=== PATIENT | female | born 1975 | race Caucasian/White ===

== ENCOUNTER → 2024-05-27 | Outpatient (CLI) | payer OTHER ==
[2024-05-27 16:00] VITALS: BP 186/84; PULSE 98; RESP 16; TEMP 97
--- NOTE | 2024-05-27 18:24 | P.SLEEP ---
History of Present Illness H&P Date: 05/27/24 This is a 48-year-old female patient is coming in for further advice regarding her symptoms of chronic hypersomnia and sleepiness and fatigue. The patient has been having those symptoms for many years and she states that she can fall asleep at any times and she feels always tired and fatigued. For now, the patient is going to bed at around 10 PM and she is getting out of bed at 8 AM in the morning. On weekends, she sleeps between 10 to 11 PM till 10 to 11 AM in the morning. On weekends, she is taken approximately an hours of sleep. Despite all this, she feels excessively fatigued and sleepy and she wakes up tired and she has trouble with attention and memory and concentration. She can easily fall asleep and typically she is able to generate sleep within minutes. No issues with sleep induction. She is sleeping on her side and back and she is also taking several naps during the day. She drinks at least 4-5 caffeinated beverages to keep herself stimulated. Her weight is up by around 10 pounds over the past 1 year. No sleep paralysis. No hallucinations. No cataplexy. Denies fall asleep while driving. No history of any motor vehicle accidents because of feeling drowsy or sleepy. This patient has been studied through sleep center through [facility]. Her original polysomnography was done on 07/27/2020. I reviewed the sleep study and the patient had a sleep efficiency of 89.4%. Her sleep latency was 2 minutes and latency to REM sleep was 198 minutes. Her sleep architecture was characterized by 1.8% stage I, 66.7% stage II, 16.7% stage III and a total of 14.8% REM sleep. The AHI was measured to be 85 and her AHI during REM sleep was 25.4. Her AHI in the supine body position was 7.2. No significant nocturnal oxygen desaturation and the patient was able to maintain saturation above 90%. No periodic limb movement activity. Based on those results, the patient was offered for CPAP machine. She underwent a CPAP titration and she was titrated to a CPAP pressure of 8 cm of water. She was given a ResMed 11 CPAP unit. The patient used the machine for quite some time and she did not see any benefit and she ultimately quit the treatment. Over the past 1 year, the patient has not used the machine. For now, she is up in her weight by around 10 pounds. She has some limited soft snoring. Her current [place] score is at 21. No other medical pounds or comorbidities. No history of substance abuse. No history of head trauma. No reported anxiety or depr ession. No panic attacks. No PTSD. No bipolar disorder. No restlessness in lower extremities. No nighttime chest pain or shortness of breath or heartburn. No family history of for any sleep breathing disorders or any other sleep disorder. She is coming in for further advice. Review of Systems Constitutional: Reports daytime sleepiness, Reports fatigue Eyes: denies as per HPI, denies blurred vision, denies bulging eye, denies decreased vision, denies diplopia, denies discharge, denies dry eye, denies irritation, denies itching, denies pain, denies photophobia, denies loss of peripheral vision, denies loss of vision, denies tunnel vision/blind spots Ears: deny: decreased hearing, ear discharge, earache, tinnitus Ears, nose, mouth and throat: Reports as per HPI Breasts: absent: as per HPI, change in shape, gynecomastia, masses, nipple discharge, pain, skin changes, swelling Cardiovascular: Reports as per HPI Respiratory: Reports sleep apnea Gastrointestinal: Reports as per HPI Genitourinary: Reports as per HPI Menstruation: Reports as per HPI Musculoskeletal: Reports as per HPI Musculoskeletal: absent: ankle pain, ankle stiffness, ankle swelling, as per HPI, elbow pain, elbow stiffness, elbow swelling, foot pain, foot stiffness, foot swelling, hand pain, hand stiffness, hand swelling, hip pain, hip stiffness, hip swelling, knee pain, knee stiffness, knee swelling, shoulder pain, shoulder stiffness, shoulder swelling, wrist pain, wrist stiffness, wrist swelling Integumentary: Reports as per HPI Neurological: Reports as per HPI Psychiatric: Reports change in sleep habits, Reports hypersomnia, Reports sleep disturbances Endocrine: Reports as per HPI, Reports fatigue Hematologic/Lymphatic: Reports as per HPI Allergic/Immunologic: Reports as per HPI Past Medical History Past Medical History: Sleep Apnea/CPAP/BIPAP History of Any Multi-Drug Resistant Organisms: None Reported Additional Past Surgical History / Comment(s): lasik, wisdom teeth Past Anesthesia/Blood Transfusion Reactions: No Reported Reaction Past Psychological History: No Psychological Hx Reported Smoking Status: Never smoker Past Drug Use History: None Reported - Past Family History Mother Family Medical History: Congestive Heart Failure (CHF) Father Family Medical History: Cancer Additional Family Medical History / Comment(s): Brain Cancer Physical Exam Vitals: Vital Signs Temp Pulse Resp BP Pulse Ox 05/27/24 15:58 97 F L 98 16 186/84 97 Intake and Output 05/27/24 05/27/24 05/27/24 06:59 14:59 22:59 Other: Weight 78.018 kg The patient appeared well nourished and normally developed. Vital signs as documented. Head exam is unremarkable. No scleral icterus or corneal arcus noted. Neck is without jugular venous distension, thyromegaly, or carotid bruits. Carotid upstrokes are brisk bilaterally. Lungs are clear to auscultation and percussion. Cardiac exam reveals the PMI to be normally sized and situated. Rhythm is regular. First and second heart sounds normal. No murmurs, rubs or gallops. Abdominal exam reveals normal bowel sounds, no masses, no organomegaly and no aortic enlargement. Extremities are nonedematous and both femoral and pedal pulses are normal. Examination of the skin revealed no evidence of significant rashes, suspicious appearing nevi or other concerning lesions. Neurologically, the patient is awake and alert and the patient does not have any focal neurological deficit. Cranial nerves are essentially intact. Assessment and Plan Plan: Chronic hypersomnia/fatigue with an [place] score of 21. This remains essentially unexplained. The sleep study that the patient had back in 07/27/2020 revealed only a mild obstructive sleep apnea with an AHI of 5 and her disease was REM specific. The patient was offered CPAP therapy without any success and her symptoms remained essentially unchanged. In fact, I believe that the patient's symptoms are out of proportion to the severity of sleep apnea that was observed on the previous sleep study. Furthermore, the patient failed to show adequate response to CPAP therapy. I suspect that the patient may have an underlying chronic idiopathic hypersomnia. Narcolepsy is felt to be less likely. No other major comorbidities contributing to her symptoms of chronic fatigue and sleepiness. No systemic illnesses. No chronic infections. No liver disease. No renal failure. No psychiatric disorder. No underlying neurologic disorders. No substance abuse. Further investigation will be needed. Plan I recommend doing a PSG and MSLT. This will offer another opportunity to screen this patient for sleep breathing disorder and objectively quantify her daytime sleepiness and in the same time rule out narcolepsy although this last is considered to be less likely. Suspect chronic idiopathic hypersomnia. Based on the results of the PSG and MSLT, we may decide on further treatment options. Lizzy reinoso benefit from stimulation therapy as the patient is chronically symptomatic and getting progressively more debilitated because of chronic fatigue and sleepiness. Will make further recommendations based on the workup mentioned. Meanwhile, the patient is maintaining good sleep hygiene measures. She is taking adequate number of hours of sleep. No other major comorbidities. Will follow. Time with Patient: Greater than 30 Sleep Note - Sleep Data ESS Total: 21 - Sleep Note Sleep Note: Temperature: 97 F Pulse Rate: 98 Respiratory Rate: 16 Blood Pressure: 186/84 SpO2: 97 Height: 5 ft 5.2 in Weight: 78.018 kg BMI: Neck Circumference: 13.5
== END ==
LOC: 3 N SLEEP 15:06
PROVIDERS: ATTEND Internal Medicine Critical Care Medicine
DX: G47.33 Obstructive sleep apnea (adult) (pediatric) (principal)
CPT/HCPCS: 99202